=== PATIENT | female | born 1970 | race Caucasian/White ===

== ENCOUNTER → 2024-03-30 15:49 | Outpatient (REF) | payer BC, SELFPAY | LOC: WDC 15:49 | PROVIDERS: ATTENDING PHYSICIAN Obstetrics & Gynecology Gynecology | DX: Z12.31 Encounter for screening mammogram for malignant neoplasm of breast (principal) | CPT/HCPCS: 77063; 77067 ==

== ENCOUNTER → 2024-04-13 06:23 | Day surgery (SDC) | payer BC, SELFPAY | LOC: GI 06:23 | PROVIDERS: ATTENDING PHYSICIAN Internal Medicine Gastroenterology | DX: Z12.11 Encounter for screening for malignant neoplasm of colon (principal); K64.8 Other hemorrhoids; K63.89 Other specified diseases of intestine; D12.2 Benign neoplasm of ascending colon; K51.914 Ulcerative colitis, unspecified with abscess | CPT/HCPCS: 45385; 45380; 88305 ==

== ENCOUNTER → 2025-03-31 15:55 | Outpatient (REF) | payer BC, SELFPAY | LOC: WDC 15:55 | PROVIDERS: ATTENDING PHYSICIAN Obstetrics & Gynecology Gynecology; FAMILY PHYSICIAN Nurse Practitioner Family | DX: Z12.31 Encounter for screening mammogram for malignant neoplasm of breast (principal) | CPT/HCPCS: 77063; 77067 ==